=== PATIENT | female | born 1965 | race Asian ===

== ENCOUNTER 2017-10-07 20:58 | Emergency (ER) | payer OTHER ==
[~2017-10-07] VITALS: Ht 160 cm; Wt 61.5 kg
[2017-10-07 21:04] VITALS: BP 135/63; PULSE 75; RESP 18; TEMP 98; O2SAT 99
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
[2017-10-07] MEDS ORDERED: ACETAMINOPHEN/HYDROcodone 325 MG/5 MG TAB PO ONE (21:15)
[2017-10-07] MEDS ORDERED: IBUPROFEN 600 MG TAB PO ONE (21:30)
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
[2017-10-07] MEDS ORDERED: NORC5TAB PO (21:50)
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
[2017-10-15] MEDS ORDERED: FISHCAP4 PO (10:25)
[2017-10-15] MEDS ORDERED: FIBECHW PO (10:25)
[2017-10-15] MEDS ORDERED: MULTTAB4 PO (10:25)
[2017-10-15] MEDS ORDERED: HYDR-3288 PO (16:36)
== END 2017-10-07 22:40 | disposition home or self-care (01) ==
LOC: NEPD 20:58
DX: S62.316A Displaced fracture of base of fifth metacarpal bone, right hand, initial encounter for closed fracture (principal); S16.1XXA Strain of muscle, fascia and tendon at neck level, initial encounter; V43.52XA Car driver injured in collision with other type car in traffic accident, initial encounter
CPT/HCPCS: 29125; 72040; 73110; 73130

== ENCOUNTER → 2017-10-15 | Day surgery (SDC) | payer OTHER ==
[~2017-10-15] VITALS: Ht 160 cm; Wt 61.6 kg
[~2017-10-15] MED LIST: ACETAMINOPHEN 1000 MG/100 ML 100 ML IV ONE; BUPIVACAINE HCL PF 0.5% 30 ML VIAL ONE; CHLORHEXIDINE GLUCONATE 2 % 1 PACK (2 CLOTHS) TOPICAL PRN; DEXAMETHASONE SOD PHOS 4 MG/ML VIAL IV ONE; DEXAMETHASONE SOD PHOS 4 MG/ML VIAL ONE; DO NOT ADM ANY ANTICOAGULANT DRUGS PRN; FIBECHW PO; FISHCAP4 PO; HYDR-3288 PO; KETOROLAC TROMETHAMINE 30 MG/ML (IVP) VIAL ONE; LACTATED RINGER'S 1000 ML IV PRN; LIDOCAINE HCL 2% 50 ML VIAL ONE; METOPROLOL TARTRATE 25 MG TAB PO PRN; MIDAZOLAM HCL 2 MG/2 ML VIAL ONE; MULTTAB4 PO; ONDANSETRON HCL 4 MG/2 ML VIAL IV ONE; POVIDONE IODINE 5% (ANTISEPSIS KIT) 4 APPLICATIONS EACH NARE PRN; PROPOFOL 200 MG/20 ML AMP IV ONE; SODIUM CHLORID 0.9% 500 ML IV PRN; ceFAZolin 1,000 MG/NS 100 ML IV SCH
[2017-10-15 11:24] LABS: AUTOMATED NEUTROPHIL # 3.4 TH/MM3 (1.8-7.7); BASOPHIL % 0.8 % (0.0-2.0); EOSINOPHIL # 0.3 TH/MM3 (0-0.4); EOSINOPHIL % 5.4 % (0.0-4.0); HEMATOCRIT 37.4 % (35.0-46.0); HEMOGLOBIN 12.8 GM/DL (11.6-15.3); LYMPH % 24.3 % (9.0-44.0); LYMPHOCYTE # 1.3 TH/MM3 (1.0-4.8); MEAN CELL VOLUME 86.7 FL (80.0-100.0); MEAN CORPUSCULAR HEMOGLOBIN 29.8 PG (27.0-34.0); MEAN CORPUSCULAR HGB CONC 34.3 % (32.0-36.0); MEAN PLATELET VOLUME 8.1 FL (7.0-11.0); MONO % 6.7 % (0.0-8.0); MONOCYTE # 0.4 TH/MM3 (0-0.9); NEUT % 62.8 % (16.0-70.0); PLATELET COUNT 362 TH/MM3 (150-450); RED BLOOD COUNT 4.31 MIL/MM3 (4.00-5.30); RED CELL DISTRIBUTION WIDTH 12.8 % (11.6-17.2); WHITE BLOOD COUNT 5.4 TH/MM3 (4.0-11.0)
[2017-10-15 18:02] VITALS: BP 110/46; PULSE 59; RESP 17; TEMP 100; O2SAT 100
--- NOTE | 2017-10-15 20:51 | EKG ---
Date Performed: 10/15/2017 Time Performed: 10:31:38 PTAGE: 52 years EKG: SINUS BRADYCARDIA BORDERLINE ECG NO PREVIOUS TRACING DOCTOR: Robyn Bello Interpretating Date/Time 10/15/2017 20:49:37
--- NOTE | 2017-10-16 08:49 | MP ---
cc: REJI MOE III, M.D. DATE OF SURGERY 10/15/2017 PREOPERATIVE DIAGNOSIS Right fifth metacarpal fracture. PROCEDURE 1. Right fifth metacarpal closed reduction and percutaneous pinning with manipulation. 2. Use of image intensifier. SURGEON Reji Moe III, MD PROCEDURE The patient was brought to the operating room and placed supine upon the operating table. After the correct site and side of the surgery were verified by the members of each team in the room multiple times including the patient and myself and, after adequate preoperative markings and preoperative written consent were verified by everyone and, after adequate preoperative time-out was performed to everyone's satisfaction, after adequate general anesthesia had been achieved, the right upper extremity was prepped and draped in the traditional sterile surgical fashion. A 50/50 mixture of 2% plain lidocaine and 0.5% plain Marcaine was infiltrated in the skin and subcutaneous tissue down to the CMC joint to the base of the fifth metacarpal. The mini C-arm was used throughout the case. Manipulation was then performed and the base of the fifth metacarpal was reduced and secured with a transverse 0.035 cm K-wire and then two additional K-wires were inserted in a longitudinal fashion securing the shaft back to the base. The pins were tailored to length, cut, bent and Jurgan's balls were applied. Reduction was anatomic. Passive range of motion examination was performed and it was full and unrestricted. There is no mal-angulation or malrotation. The fifth MCP joint was as prominent as all the others. Final x-rays were obtained. Additional local anesthetic was infiltrated in the pin sites. The hand and arm were thoroughly cleansed and dried. Xeroform was applied around the pin sites. Additional Xeroform was applied around the superficial fajardo on her forearm. A very well-padded, well molded short-arm volar and ulnar gutter splint was made in the usual fashion leaving the PIP joints to the third, fourth and fifth fingers free to move. The patient was awakened from anesthesia, transported to the Post-Anesthesia Care Unit awake and in stable condition at the end of the case. Sponge, needle and instrument counts were correct at the end of the case as reported the nurses in the room. Capillary refill was less than 2 seconds in all fingertips the entire time. Reji MD UYEN Mcmullen III/SSB /4:35 PM /8:21 AM
== END | disposition home or self-care (01) ==
LOC: HSDC 09:45
PROVIDERS: ATTEND Orthopaedic Surgery Hand Surgery
DX: S62.316A Displaced fracture of base of fifth metacarpal bone, right hand, initial encounter for closed fracture (principal); R94.31 Abnormal electrocardiogram [ECG] [EKG]; V43.52XA Car driver injured in collision with other type car in traffic accident, initial encounter
CPT/HCPCS: 01820; 26608; 76000; 85025; 93005; J0131; J1100; J1885; J2250; J2405; J7120